=== PATIENT | male | born 1945 | race Caucasian/White ===

== ENCOUNTER 2020-11-12 08:54 | Emergency (ER) | payer MEDICARE, SELFPAY ==
--- NOTE | ~2020-11-12 | XR_ITS ---
EXAMINATION: XR knee LT 3V DATE: 11/12/2020 09:20 INDICATION: Left knee pain post fall TECHNIQUE: Anteroposterior, oblique and crosstable lateral views of the left knee were obtained COMPARISON: None. FINDINGS: Alignment is normal. No fracture. Osteoarthritis without least mild joint space narrowing in the med ial compartment which could be underestimated on nonweightbearing imaging and tiny marginal osteophyt es in the patellofemoral compartment. No knee joint effusion/layering lipohemarthrosis. Mild prepatel lar soft tissue swelling. IMPRESSION: 1. No left knee joint effusion or acute osseous abnormality. Reviewed, dictated and finalized at location A.
--- NOTE | ~2020-11-12 | XR_ITS ---
EXAMINATION: XR forearm RT 2V DATE: 11/12/2020 09:20 INDICATION: Right forearm pain post fall TECHNIQUE: AP an lateral views of the right forearm were obtained. COMPARISON: none FINDINGS: Prominent focal soft tissue swelling at the dorsal aspect of the mid right forearm. Or bone alignment is normal. No fracture. 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 No right elbow joint effusion. IMPRESSION: 1. No acute osseous abnormality. Reviewed, dictated and finalized at location A.
[2020-11-12 09:02] VITALS: BP 136/86; PULSE 65; RESP 18; TEMP 36.9; O2SAT 97
--- NOTE | 2020-11-12 10:37 | ED.FALL ---
HPI - Fall General Chief Complaint: Fall Stated Complaint: fall Time Seen by Provider: 11/12/20 10:07 Source: patient Mode of arrival: ambulatory Limitations: no limitations History of Present Illness HPI Narrative: This is a 75-year-old male that presents to the emergency department after a ground-level fall today. Reports he tripped over his shoelaces and fell forward. He caught himself with his right forearm and also hit his left knee. Reports bruising and pain to these areas. Also reports superficial abrasions. Denies hitting his head, loss of consciousness, decreased range of motion, or numbness. Related Data Home Medications Medication Instructions Recorded Confirmed amlodipine 11/12/20 Allergies Allergy/AdvReac Type Severity Reaction Status Date / Time No Known Allergies Allergy Verified 11/12/20 09:05 Review of Systems Review of Systems: CONSTITUTIONAL: Denies fever SKIN: Reports abrasions MUSCULOSKELETAL: Reports joint pain, and myalgia. NEUROLOGIC: Denies numbness, or weakness. All systems reviewed & are unremarkable except as noted in HPI and below PMFSH Past Medical History Medical History (Updated 11/12/20 @ 10:41 by Jessica Jin PA-C) History of hypertension Social History Social History (Updated 11/12/20 @ 10:39 by Jessica Jin PA-C) Smoking status: Never smoker Exam Narrative: GENERAL: Well-appearing, well-nourished, and in no acute distress. HEAD: Normocephalic, atraumatic. EYES: EOMI. ENT: Nares clear, no rhinorrhea or epistaxis. Mucous membranes moist. Oropharynx without tonsillar hypertrophy exudate or other lesions. Bilateral TMs pearly vann non-bulging NECK: Supple. No adenopathy or masses. No midline cervical spine tenderness CHEST: Clear to auscultation. No respiratory distress. No wheezes rales or rhonchi HEART: Regular rate and rhythm. No murmur heard. Normal peripheral pulses. BACK: No midline thoracic or lumbar spine tenderness EXTREMITIES: Normal range of motion. No obvious deformity. Bruising noted to the mid right forearm. Mild edema about the left knee anteriorly with superficial abrasions in the area. Normal DP and radial pulses. Normal sensation SKIN: Warm, dry, no rash. NEURO: No focal deficits. Alert and oriented x3. PSYCH: Normal mood and affect Course Vital Signs Vital signs: Vital Signs Temperature 98.4 F 11/12/20 09:02 Pulse Rate 65 11/12/20 09:02 Respiratory Rate 18 11/12/20 09:02 Blood Pressure 136/86 11/12/20 09:02 Pulse Oximetry 97 11/12/20 09:02 Temperature 98.4 F 11/12/20 09:02 Pulse Rate 65 11/12/20 09:02 Respiratory Rate 18 11/12/20 09:02 Blood Pressure 136/86 11/12/20 09:02 Pulse Oximetry 97 11/12/20 09:02 MDM - Fall MDM Narrative Medical decision making narrative: Patient presents to the emergency department after a ground-level fall today. Reporting injuries to the left knee and right forearm. Wounds were cleansed and covered with bandages. Patient was updated on tetanus. Left knee x-rays without acute osseous abnormalities. Right forearm x-ray is also without acute osseous abnormalities. Patient given Yomi wrap and instructed to rest, ice and take [id number] pain medication as needed. He is to follow-up with primary care doctor. He was given warnings to return to the ER Imaging Data Radiologist's impression: ITS Impressions Forearm X-Ray 11/12/20 09:24 IMPRESSION: 1. No acute osseous abnormality. Knee X-Ray 11/12/20 09:30 IMPRESSION: 1. No left knee joint effusion or acute osseous abnormality. Critical Care Time Critical Care Time Critical Care Time: No Discharge Plan Discharge Clinical Impression: Contusion of knee, left Qualifiers: Encounter type: initial encounter Qualified Code(s): S80.02XA - Contusion of left knee, initial encounter Abrasion of right forearm Qualifiers: Encounter type: initial encounter Qualified Code(s): S50.81
[2020-11-12] MEDS: TETANUS,DIPHTHERIA,AC PERTUSSIS ADULT (0.5 ML) BOOSTRIX IM (10:45)
[2020-11-12 10:49] VITALS: BP 128/76; PULSE 68; RESP 20; O2SAT 98
== END 2020-11-12 10:51 | disposition home or self-care (01) ==
PROVIDERS: Emergency Provider Emergency Medicine; PCP Internal Medicine
DX: S80.02XA Contusion of left knee, initial encounter (principal); S50.811A Abrasion of right forearm, initial encounter; Z23 Encounter for immunization; W01.0XXA Fall on same level from slipping, tripping and stumbling without subsequent striking against object, initial encounter
CPT/HCPCS: 73090; 73562; 90471; 90715; 99284

== ENCOUNTER 2023-01-21 11:46 | Outpatient (CLI) | payer MEDICARE, SELFPAY ==
--- NOTE | 2023-01-21 12:37 | ECG_ITS ---
Measurements Intervals [place] Rate: 64 P: 75 IN: 180 QRS: -74 QRSD: 98 T: -2 QT: 419 QTc: 432 Interpretive Statements SINUS RHYTHM LEFT ANTERIOR FASCICULAR BLOCK BORDERLINE T WAVE ABNORMALITY- ANTEROLAT/INF LEADS BASELINE WANDER- V6 ABNORMAL ECG NO PREVIOUS ECG AVAILABLE FOR COMPARISON Electronically Signed On 01-21-2023 13:04:05 PACKAGING SALES REPRESENTATIVE by Howard Morrison D.O.
[2023-01-21 13:03] LABS: Basophils Percent Auto 0.5 % (0.2-1.2); Eosinophils Absolute Auto 0.1 K/mm3 (0-0.3); Eosinophils Percent Auto 0.9 % (0-4.4); Hematocrit 42.6 % (42.0-52.0); Hemoglobin 14.9 g/dL (14.0-18.0); Immature Granulocyte Absolute 0.03 K/mm3 (0.00-0.031); Immature Granulocyte Percent A 0.4 % (0-0.5); Lymphocytes Absolute Auto 1.29 K/mm3 (0.9-3.2); Lymphocytes Percent Auto 15.1 % (18.3-44.2); Mean Corpuscular Hemoglobin 30.5 pg (26-34); Mean Corpuscular Volume 87.1 fl (80-100); Monocytes Absolute Auto 0.6 K/mm3 (0.1-0.6); Neutrophils Absolute Auto 6.5 K/mm3 (1.3-6.7); Neutrophils Percent Auto 76.1 % (45.5-73.1); Platelet Count Result 186 k/mm3 (150-375); Red Blood Count 4.89 M/mm3 (4.6-6.20); Red Cell Distribution Width 12.3 % (11.5-14.5); White Blood Count 8.6 K/mm3 (4.5-10.0)
[2023-01-21 13:11] LABS: Urine Cotinine NEGATIVE
[2023-01-21 13:13] LABS: Albumin Level 4.4 g/dL (3.5-5.1); Anion Gap 11 mmol/L (8-16); Blood Urea Nitrogen 17 mg/dL (9-20); Calcium 9.1 mg/dL (8.4-10.2); Carbon Dioxide 26 mmol/L (22-30); Chloride 103 mmol/L (98-107); Estimated Glomerular Filt Rate > 60; Glucose 112 mg/dL (65-110); Potassium 3.5 mmol/L (3.4-5.0); Sodium 140 mmol/L (137-145)
== END 2023-01-21 11:47 | disposition home or self-care (01) ==
LOC: ANHSURGERY 11:50
PROVIDERS: PCP Internal Medicine; Visit Provider Orthopaedic Surgery
DX: Z01.818 Encounter for other preprocedural examination (principal); M17.11 Unilateral primary osteoarthritis, right knee; R94.31 Abnormal electrocardiogram [ECG] [EKG]; R93.1 Abnormal findings on diagnostic imaging of heart and coronary circulation
CPT/HCPCS: 80048; 80307; 82040; 83036; 85025; 87081; 93005

== ENCOUNTER 2023-02-12 02:29 | Day surgery (SDC) | payer MEDICARE, SELFPAY ==
[2023-01-21 11:55] VITALS: BMI 30.8
--- NOTE | 2023-01-21 12:11 | PC.NURSE ---
Report to the Outpatient Waiting Room, entrance under the green pavilion located off [facility], at time _1000 on date __02/12/23 . Planned Procedure Time: __1200 . Time changes happen often and if your time is changed the preop area will call you the afternoon before. - You and your visitor will be asked to self-screen and do not enter if you have any COVID symptoms. - A mask is optional within the hospital at this time. Patients may have clear liquids (water, carbonated beverages, clear teas, apple juice) until 3 hours prior to surgery with a maximum of 20 ounces. - No food from midnight until time of surgery - Infants may have breast milk until 4 hours before surgery, infant formula 6 hours prior to surgery. - Children will be allowed to drink immediately following surgery. If applicable, please bring a bottle or sippy cup to assist with drinking. Juice, water, soda, and popsicles are readily available. For infants on formula, please bring formula the day of surgery. Pacifiers are allowed. Take the following medications with a SIP of water the morning of surgery: ____AMLODIPINE DO NOT STOP ANY OF YOUR OTHER PRESCRIPTION MEDICATIONS PRIOR TO SURGERY ?EXCEPT THE FOLLOWING Medications to discontinue per physician IBUPROFEN 7 DAYS PRE OP PER DR JORGENSEN LAST DOSE 02/04/23 MAY TAKE TYLENOL IF NEEDED FOR PAIN TOTAL JOINT CLASS 01/22/23 AT 10 AM Please no make-up, nail kazakh, hairspray, perfume, deodorant, or body powder the day of surgery. No jewelry (including any body piercings) or valuables the day of surgery, leave them at home. Please take a shower or bath the night before, or the morning of, surgery with an antibacterial soap. Wear comfortable, loose fitting clothing. Children are encouraged to wear pajamas. - Jewelry must be removed prior to entering the operating room. Rings and piercings that are not removed may be cut off. - The hospital will not accept responsibility for valuables. - Please leave all valuables, including medications, at home the day of surgery. If you are going home after surgery, a licensed lyft driver must drive you home. - NO public transportation without another adult if you receive anesthesia. - We recommend that an adult stay with you for 24 hours following discharge. - We also recommend that you do not drive, make important decision, drink alcoholic beverages, or take any drugs that were not prescribed by your health care provider for at least 24 hours after your discharge time. For Pediatric surgeries, we recommend two adults accompany the child home. Follow any additional instructions given to you from your surgeon. If you or anyone in your household have experienced Covid symptoms in the past week, please notify your surgeon or the nurse liaison at the phone number below for possible testing. VERBAL AND WRITTEN instructions given to _PATIENT and asked if any additional questions and then verbalized understanding. Patient advised to call surgeon office or pre surgery nurse liaison [phone] if any additional questions.
[2023-01-21 12:26] VITALS: BP 134/90; PULSE 69; RESP 18; TEMP 36.9; O2SAT 98
--- NOTE | 2023-02-07 08:13 | PM.IMHP ---
H&P: HPI History of Present Illness Date/Time: 02/07/23 08:13 Chief Complaint: Right knee DJD Narrative: 78-year-old male patient of Dr. Wesley presents today for a right total knee arthroplasty. Patient has been having pain in his right knees for years. He has been treating this nonsurgically with occasional ibuprofen. Patient is a very active 78-year-old and is finding it difficult with his daily activities due to the knee pain. He has severe medial compartment osteoarthritis at this point feels he is ready to proceed total knee arthroplasty. Review of Systems Review of Systems: All systems reviewed & are unremarkable except as noted in HPI and below PMFSH Past Medical History Medical History (Updated 02/07/23 @ 08:16 by ALEX Mackenzie) History of hypertension Social History Social History (Updated 11/12/20 @ 10:39 by Jessica Jin PA-C) Smoking status: Never smoker Additional smoking assessment comments: DENIES ANY FORM OF TOBACCO USE Living arrangements: with family Spiritual care concerns: No Meds Home Medications and Allergies Home Medications Medication Instructions Recorded Confirmed Type amlodipine 10 mg tablet 10 mg PO QAM 11/12/20 01/21/23 History ibuprofen 200 mg capsule 200 mg PO Q6H PRN Pain 01/21/23 01/21/23 History Allergies Allergy/AdvReac Type Severity Reaction Status Date / Time No Known Allergies Allergy Verified 01/21/23 11:56 Exam Narrative: 78-year-old male he is 5 ft 7 and 221 lb his BMI is 34.6. His right knee he has a trace effusion, range of motion is from 3-140 degrees. He has minimal medial pseudolaxity. He has a subtle varus alignment. Normal quad strength. Full range of motion of the right hip without discomfort. Negative Stinchfield maneuver. 2+ post tibial artery pulse absent dorsalis pedis pulse. Normal sensation to the right lower extremity without edema. He has a scar that runs parallel to the medial edge of the patella tendon from previous open meniscectomy. Resp: Auscultation: clear to auscultation bilaterally Cardio: Rate: regular rate Rhythm: regular rhythm Assessment and Plan Assessment and plan (1) Right knee DJD: Code(s): M17.11 - Unilateral primary osteoarthritis, right knee Status: Acute Plan 78-year-old male who has severe medial compartment osteoarthritis the right knee with continued symptoms. Again at this point he would like to proceed with total knee arthroplasty. Surgical procedure as well as the risks and complications were discussed in detail and all questions were answered and we will proceed. He will see his primary care doctor for pre-surgical clearance. His nasal swab was negative. Chem panel was all within normal limits, creatinine is 0.90. Hemoglobin 14.9 and platelets were 186.
[2023-02-12] VITALS (12 sets, daily range): BP systolic 106–145; BP diastolic 62–90; PULSE 62–74; RESP 14–20; TEMP 36.4–37.2; O2SAT 89–99
--- NOTE | ~2023-02-12 | XR_ITS ---
EXAMINATION: [id number] DATE: 02/12/2023 16:10 LOOM INSPECTOR INDICATION: Right total knee arthroplasty TECHNIQUE: 2 views right knee FINDINGS: There is a right total knee arthroplasty in expected position. Subcutaneous gas with fluid and air in the joint are consistent with recent surgery. No evidence of periprosthetic fracture. IMPRESSION: 1. Recent right total knee arthroplasty. Reviewed, dictated and finalized at location B. INSPECTOR
[2023-02-12] MEDS: ACETAMINOPHEN 500 MG TABLET 1000 MG PO ×2 (10:27→18:08)
[2023-02-12] MEDS: LACTATED RINGERS 1,000 ML 30 ML IV CONT ×2 (10:35→16:03)
--- NOTE | 2023-02-12 11:52 | WPDHPUPDATE1 ---
History and Physical Update Update Date/Time: 02/12/23 11:52 History and Physical has been reviewed, including an updated exam of the patient. There are NO changes in the patient's condition. Risks, benefits, and alternatives have been discussed and questions answered. Patient agrees to proceed with procedure.
[2023-02-12] MEDS: TRANEXAMIC ACID 1,000MG/ISO100 1,000 MG/100 ML BAG 200 MG IVPB (11:54)
--- NOTE | 2023-02-12 11:59 | WPDANESEPPF ---
Anes - Initial Pre Proc Eval Procedure: Operation Date: 02/12/23 12:00 Proposed Procedures p Right Total Knee Arthroplasty - Tera Kuhn MD Date/Time: 02/12/23 11:59 Surgeon: Tera Kuhn MD Pre Op Diagnosis: oa right knee Patient Data Age: 78 Gender: M Height: 1.78 m Weight: 97.15 kg Last Vital Signs Temp 97.9 F 02/12/23 09:35 Pulse 62 02/12/23 09:35 Resp 20 02/12/23 09:35 BP 145/90 H 02/12/23 09:35 Pulse Ox 99 02/12/23 09:35 O2 Del Method Room Air 02/12/23 09:35 Allergies Allergy/AdvReac Type Severity Reaction Status Date / Time No Known Allergies Allergy Verified 02/12/23 10:25 Home Medications Medication Instructions Recorded Confirmed Type amlodipine 10 mg tablet 10 mg PO QAM 11/12/20 02/12/23 History Laboratory Tests 02/12/23 10:33 Blood Type A Positive Antibody Screen Negative Patient hx anesthesia problems: post op nausea/vomiting Family hx anesthesia problems: none Results Review: All pre-operative results and documents have been reviewed as part of the pre-operative evaluation. [facility] Past Medical History Medical History (Updated 02/07/23 @ 08:16 by ALEX Mackenzie) History of hypertension Social History Social History (Updated 11/12/20 @ 10:39 by Jessica Jin PA-C) Smoking status: Never smoker Additional smoking assessment comments: DENIES ANY FORM OF TOBACCO USE Living arrangements: with family Spiritual care concerns: No Anes - Eval Final PreProcedure Day of Procedure 02/12/23 11:59 Patient weight: obese Heart: regular rate and rhythm Lungs: clear to auscultation Airway: Mallampati scale class II Neurological: alert and oriented Last oral intake: >/= 8 hours ASA classification: III Emergent: no Anesthetic plan: proceed Anesthesia type and monitoring: general ETT and standard monitoring Results Review: All pre-operative results and documents have been reviewed as part of the pre-operative evaluation. Informed Consent: The patient's anesthetic plan and its attendant risks and benefits were discussed with the patient/family/POA. Questions were solicited and answers provided to the satisfaction of the patient/family/POA.
[2023-02-12] MEDS: ceFAZolin 2 GM/D5W 50 ML 2 GM/50 ML BAG IVPB (12:33)
[2023-02-12] MEDS: ceFAZolin SODIUM 1 GM VIAL 3 GM (13:11)
[2023-02-12] MEDS: GENTAMICIN BONE CEMENT REFOBACIN 1 EACH TOPICAL (14:46)
[2023-02-12] MEDS: ceFAZolin SODIUM 1 GM VIAL 2 GM IV PUSH (15:04)
[2023-02-12] MEDS: TRANEXAMIC ACID 1,000 MG/10 ML AMPUL 1000 MG IV PUSH (15:04)
[2023-02-12] MEDS: KETOROLAC 15 MG/ML VIAL (*BKC) IV PUSH (15:04)
--- NOTE | 2023-02-12 15:55 | W.PM.PROC2 ---
Procedure Note - Detailed Date of Procedure 02/12/23 Pre-op Diagnosis oa right knee Post-op Diagnosis Same Procedure Performed Right total knee arthroplasty Surgeon Tera Kuhn MD Dental Intern janet Anesthesia General Description of Procedure Patient was brought to the operating room and general anesthesia was administered. He received 2 g of Ancef weight based vancomycin 1 g of tranexamic acid preoperatively. The right knee was prepped draped usual fashion. Limb was exsanguinated tourniquet elevated to 250 mmHg. A in 8 in longitudinal midline incision was used in the standard parapatellar arthrotomy utilized. We incorporated the vertical incision from decades ago that ran approximately 10 mm medial to the tibial tubercle. Partial infrapatellar fat pad excision performed quadriceps synovectomy carried out. The patella had some chondromalacia medially but good cartilage centrally and in the lateral facet I thought it was most suitable for non resurfacing. Small osteophytes removed and a minimal lateral facetectomy was performed. A guide coleman was inserted down the femoral canal after aspiration of canal contents using the 5 degree valgus cutting bushing 9 mm of bone removed the distal femur. Distal femur was quite sclerotic and eburnated and with aware this removed about 8 mm from the lateral femoral condyle. The ACL was absent as per his history. And next the tibial plateau was cut. We made the cut perpendicular to the axis of the tibia and made a skim cut through the low point of the wear spot in the medial margin of the mid medial tibial plateau. Meniscal remnants were excised the PCL was recessed. He seemed to have full extension preoperatively so we did not perform a posterior capsular release. At 90? of flexion, the flexion gap measured 8 mm medially and 12 mm laterally. The femoral sizing guide was applied to the distal femur set at 3? of external rotation. This matched Whitesides line. The size 70 vanguard cutting block was applied which gave a flush cut with the anterior cortex. Posterior and chamfer cuts were made. His femur was relatively wide deep relative to the anterior-posterior dimension so there was about 2.5 mm of bone distally medial and lateral to the trial. We inserted the 75 10 CR implant 90? of flexion and with a Bolaños elevator we had about a mm and half of medial lateral opening with good balance. Did seem a little bit tight elected to punched with thought this might lose foot subluxation is. The size 7 5 to line anteromedial posterolateral at the proper rotation. The 79 was going to overhang at proper rotation. We punched for a 75 and trialed with 10 insert. This was too tight in flexion with no anterior drawer play the tightness was equal medially and laterally. In extension and lacked a few degrees of extension and again there was no play mediolateral should therefore I elected to remove additional 2 mm of bone from the tibial plateau. Once this was done we again carefully punched keel through the tower to confirm proper registration between the tibial tray and the keel. We also confirmed that the tibial surface was perfectly flat. We then trialed with the 11 and this had the appropriate feel at 90? with a few mm of anterior-posterior drawer and at 140? of flexion no anterior-posterior drawer. The knee came out to full extension with a negative bounce but no play medially and with the arthrotomy closed, there was a very slight bounce indicating incomplete extension to tightness medially. We therefore removed the medial tibial osteophytes conservatively avoiding release the posterior capsule. This was done medially and posteromedially. Little bit of cartilage the proximal posterior femoral condyles was removed and on read trialing the knee came out to full extension 1-2 mm of medial opening in extension to laterally. The arthrotomy towel clip was 1 mm medial opening and still full extension with negative bounce. Mai
--- NOTE | 2023-02-12 16:10 | PM.OP ---
Procedure Note - Brief Procedure Note - Brief Date of procedure: 02/12/23 oa right knee Procedure performed: Right total knee arthroplasty Surgeon: ALEX Mackenzie Findings: 78-year-old male who underwent right total knee arthroplasty on 02/12. I was involved in the procedure including positioning the patient on the OR table and 1st assisting to the time of surgery. Total time spent was 3 hours
[2023-02-12] MEDS: SODIUM CHLORIDE 0.9% IV 1,000 ML 125 ML IV CONT (18:07)
[2023-02-12] MEDS: oxyCODONE HCL (*CRX) 5 MG TAB IR PO ×2 (18:08→20:35)
[2023-02-12] MEDS: SCOPOLAMINE 1.5 MG PATCH TRANSDERM (18:08)
[2023-02-12] MEDS: SENNA/DOCUSATE SODIUM TABLET 2 TAB PO (18:08)
[2023-02-12] MEDS: FAMOTIDINE 20 MG TABLET PO (20:35)
[2023-02-12] MEDS: ceFAZolin 1 GM/NS 50 ML 1 GM/50 ML BAG IVPB (20:36)
[2023-02-12] MEDS: VANCOMYCIN 1,000 MG/NS 250 ML 1,000 MG/250 ML BAG 250 MG IVPB (23:06)
[2023-02-13] MEDS: ACETAMINOPHEN 500 MG TABLET 1000 MG PO ×3 (01:00→12:56)
[2023-02-13] MEDS: oxyCODONE HCL (*CRX) 5 MG TAB IR PO ×4 (01:18→12:56)
[2023-02-13 02:50] VITALS: BP 122/65; PULSE 62; RESP 21; TEMP 36.7; O2SAT 100
[2023-02-13] MEDS: ceFAZolin 1 GM/NS 50 ML 1 GM/50 ML BAG IVPB ×2 (05:00→12:14)
[2023-02-13 05:56] LABS: Basophils Percent Auto 0.1 % (0.2-1.2); Hematocrit 39.4 % (42.0-52.0); Hemoglobin 13.2 g/dL (14.0-18.0); Immature Granulocyte Absolute 0.08 K/mm3 (0.00-0.031); Immature Granulocyte Percent A 0.5 % (0-0.5); Lymphocytes Absolute Auto 0.54 K/mm3 (0.9-3.2); Lymphocytes Percent Auto 3.7 % (18.3-44.2); Mean Corpuscular HGB Conc 33.5 g/dl (32-36); Mean Corpuscular Hemoglobin 29.8 pg (26-34); Mean Corpuscular Volume 88.9 fl (80-100); Mean Platelet Volume 10.1 fl (7.4-10.4); Monocytes Absolute Auto 0.6 K/mm3 (0.1-0.6); Monocytes Percent Auto 4.1 % (2.6-8.5); Neutrophils Absolute Auto 13.5 K/mm3 (1.3-6.7); Neutrophils Percent Auto 91.6 % (45.5-73.1); Platelet Count Result 168 k/mm3 (150-375); Red Blood Count 4.43 M/mm3 (4.6-6.20); Red Cell Distribution Width 12.2 % (11.5-14.5); White Blood Count 14.7 K/mm3 (4.5-10.0)
[2023-02-13 06:06] LABS: Anion Gap 9 mmol/L (8-16); Blood Urea Nitrogen 16 mg/dL (9-20); Calcium 8.3 mg/dL (8.4-10.2); Carbon Dioxide 24 mmol/L (22-30); Chloride 104 mmol/L (98-107); Estimated CRCL calculation 80 ml/min; Estimated Glomerular Filt Rate > 60; Glucose 158 mg/dL (65-110); Potassium 4.2 mmol/L (3.4-5.0); Sodium 137 mmol/L (137-145)
[2023-02-13 06:50] VITALS: BP 129/80; PULSE 57; RESP 20; TEMP 36.1; O2SAT 99
[2023-02-13 08:25] VITALS: O2SAT 99
[2023-02-13] MEDS: amLODIPine BESYLATE 5 MG TABLET 10 MG PO (08:25)
[2023-02-13] MEDS: APIXABAN 2.5 MG TABLET PO (08:25)
[2023-02-13] MEDS: CELECOXIB 200 MG CAPSULE PO (08:25)
[2023-02-13] MEDS: SENNA/DOCUSATE SODIUM TABLET 2 TAB PO (08:26)
[2023-02-13] MEDS: polyethylene glycoL 3350 17 GM POWD.PACK PO (08:26)
[2023-02-13] MEDS: FAMOTIDINE 20 MG TABLET PO (08:26)
--- NOTE | 2023-02-13 08:29 | PM.PNORT ---
Progress Note: A&P Assessment and Plan (1) Status post right knee replacement: Code(s): Z96.651 - Presence of right artificial knee joint Status: Acute Plan the patient is status post right total knee arthroplasty postop day 1 doing well ready for discharge to home. See discharge instructions and orders. This was discussed in detail today with the patient at bedside including making sure he elevates his leg as much as possible above the heart during the day not let his leg hang down. Get up move around every hour with a walker full weight-bearing resume home medications as instructed along with other medications prescribed. He was instructed not to use ice on incision leave the dressing in place he may shower remove that in 1 week changes and follow up with Dr. Brice in 2 weeks for recheck. He is instructed to call the office immediately for any problems difficulties or questions he voiced understanding and agreed with the above plan. Subjective Subjective Date/Time Seen: 02/13/23 08:29 Interval history: Patient is postop day 1 doing well status post total knee arthroplasty. Has no complaints today we discussed postop instructions at bedside he is doing well. He would like to be discharged home later today. Eating and sleeping well ready for therapy. No postop complications or complaints. Review of Systems Review of Systems: Ten point review of systems negative Exam Narrative: on exam the patient is noted be in no acute distress alert oriented x3. Normal mood and affect. Vital signs are stable he is afebrile neurovascularly patient is intact wound clean and dry calves benign tolerating p.o. well. Objective Data Vital Signs Vital Signs: Vital Signs - 24 hr 02/12/23 09:35 02/12/23 16:03 02/12/23 16:30 Temperature 36.6 C 36.5 C Pulse Rate 62 65 65 Respiratory Rate 20 17 18 Blood Pressure 145/90 H 112/68 114/73 Pulse Oximetry 99 95 98 Oxygen Delivery Room Air Simple Face Mask Simple Face Mask Oxygen Flow Rate 6 6 02/12/23 16:45 02/12/23 16:15 02/12/23 16:53 Temperature Pulse Rate 71 66 Respiratory Rate 18 14 Blood Pressure 134/78 114/68 Pulse Oximetry 96 99 89 L Oxygen Delivery Room Air Simple Face Mask Nasal Cannula Oxygen Flow Rate 6 2 02/12/23 17:00 02/12/23 17:35 02/12/23 18:00 Temperature 37.0 C Pulse Rate 72 64 Respiratory Rate 16 18 Blood Pressure 131/74 106/62 Pulse Oximetry 94 94 94 Oxygen Delivery Nasal Cannula Nasal Cannula Oxygen Flow Rate 2 2 02/12/23 18:45 02/12/23 18:15 02/12/23 22:02 Temperature 37.2 C 36.8 C 36.4 C Pulse Rate 66 69 74 Respiratory Rate 18 16 20 Blood Pressure 110/78 110/72 127/65 Pulse Oximetry 98 94 99 Oxygen Delivery Oxygen Flow Rate 02/13/23 02:50 02/13/23 06:50 Temperature 36.7 C 36.1 C L Pulse Rate 62 57 L Respiratory Rate 21 H 20 Blood Pressure 122/65 129/80 Pulse Oximetry 100 99 Oxygen Delivery Oxygen Flow Rate Intake/Output Intake/Output: Intake & Output 02/10/23 02/11/23 02/12/23 02/13/23 23:59 23:59 23:59 23:59 Intake Total 700 500 Output Total 600 Balance 700 -100 Meds/Results Medications: Active Medications Generic Name Dose Route Start Last Admin Trade Name Delilah PRN Reason Stop Dose Admin Acetaminophen 1,000 mg 02/12/23 18:00 02/13/23 05:27 Acetaminophen 500 Mg Tablet PO 1,000 mg Q6H SHARAD Administration Amlodipine Besylate 10 mg 02/13/23 09:00 02/13/23 08:25 Amlodipine Besylate 5 Mg Tablet PO 10 mg QAM SHARAD Administration Apixaban 2.5 mg 02/13/23 09:00 02/13/23 08:25 Apixaban 2.5 Mg Tablet PO 02/24/23 21:01 2.5 mg Q12HR SHARAD Administration Cefdinir 300 mg 02/13/23 21:00 Cefdinir 300 Mg Capsule PO Q12HR SHARAD Celecoxib 200 mg 02/13/23 08:00 02/13/23 08:25 Celecoxib 200 Mg Capsule PO 200 mg DAILY@0800 SHARAD Administration Diphenhydramine HCl 25 mg 02/12/23 17:05 Diphenhydramine Hcl Inj 50 Mg
--- NOTE | 2023-02-13 08:42 | PM.DS ---
DS: Admitting Diagnosis Discharge Date February 13, 2023 Admitting Diagnosis admitting diagnosis advanced primary osteoarthritis right knee joint. Discharge diagnosis same status post right total knee arthroplasty. DS: Summary Hospital Course Hospital Course: The patient was admitted overnight status post right total knee arthroplasty postop day 1 he was doing well pain was well controlled vital signs are stable he is afebrile neurovascular is intact wound was clean and dry calves are benign he was up ambulating independently with a walker in therapy doing well. Had no postop complaints or issues. Patient was alert oriented x3. Normal mood and affect. . The patient was ready for discharge to home. At bedside we discussed details of the discharge instructions these included when resting life flat on the back have the leg elevated above the heart do not apply ice to the knee or incision. The patient was instructed to pump his ankles frequently go through his range of motion exercises at least 5 times a day get up and move around about every hour for prevention of DVT as well. Patient was instructed to not let his leg hang while sitting in a chair other than to get up to eat or use the restroom. The patient was instructed that he may shower leaving the dressing in place remove the dressing in 1 week replace it watch for evidence of infection or drainage call the office immediately for any problems difficulties or questions. Follow-up with Dr. ann in 2 weeks for wound recheck. The patient was to be full weight-bearing with a walker have outpatient physical therapy as instructed and pre scheduled by our office. If significant swelling or pain occurs in the lower extremity the patient was instructed to call the office and go to the hospital for a venous duplex scan the patient voiced understanding and agreed with the above plan. The patient was to be discharged to home in stable condition. Time Spent with Patient Time attestation: Total time spent providing and/or coordinating discharge services: Exam Narrative: Vital signs stable afebrile neurovascular intact wound clean and dry calves benign alert oriented x3. Normal mood and affect. Pain well controlled ambulating with a walker no other complaints. DS: Data Data Completed and Pending Labs on day of discharge: Labs from last 24 hours 02/13/23 02/12/23 05:14 10:33 WBC 14.7 H RBC 4.43 L Hgb 13.2 L Hct 39.4 L MCV 88.9 MCH 29.8 MCHC 33.5 RDW 12.2 Plt Count 168 MPV 10.1 Immature Gran % (Auto) 0.5 Neut % (Auto) 91.6 H Lymph % (Auto) 3.7 L [place] % (Auto) 4.1 Eos % (Auto) 0.0 Baso % (Auto) 0.1 L Lymph # (Auto) 0.54 L [place] # (Auto) 0.6 Eos # (Auto) 0.0 Baso # (Auto) 0.0 Abs Immat Gran (auto) 0.08 H Absolute Neuts (auto) 13.5 H Absolute Nucleated RBC 0.0 Nucleated RBC % 0.0 Sodium 137 Potassium 4.2 Chloride 104 Carbon Dioxide 24 Anion Gap 9 BUN 16 Creatinine 0.80 Estim Creat Clear Calc 80 Estimated GFR > 60 Glucose 158 H Calcium 8.3 L Blood Type A Positive Antibody Screen Negative Procedures/Treatments: Right total knee arthroplasty Discharge Plan Discharge Patient Disposition: Home, Self-Care Discharge Instructions: [facility], [address] [address] POST-OPERATIVE DISCHARGE INSTRUCTIONS TOTAL KNEE ARTHROPLASTY 1. When resting, do not rest in the chair.When resting, lie on your back, with back flat on the couch or bed, with leg elevated above heart to minimize swelling. You may put a pillow under your head. . Significant swelling could indicate a blood clot and if this occurs call the office (or go to the ER) to have a venous ultrasound. Therefore, do not rest in a chair. 2. At least five times a day spend several minutes stretching your knee into flexion while sitting in the chair a
[2023-02-13] MEDS: VANCOMYCIN 1,000 MG/NS 250 ML 1,000 MG/250 ML BAG 250 MG IVPB (10:41)
[2023-02-13 10:50] VITALS: BP 120/78; PULSE 60; RESP 18; TEMP 36.6; O2SAT 93
--- NOTE | 2023-02-13 13:53 | P.PNAN_ITS ---
Anes - Prog Note Post-Op Date/Time: 02/13/23 13:53 Vital Signs: Last Vital Signs Temp 36.6 C 02/13/23 10:50 Pulse 60 02/13/23 10:50 Resp 18 02/13/23 10:50 BP 120/78 02/13/23 10:50 Pulse Ox 93 02/13/23 10:50 O2 Del Method Room Air 02/13/23 09:17 O2 Flow Rate 2 02/12/23 17:35 Pain Score (VAS): 0 I/O: Intake & Output 02/12/23 02/13/23 02/13/23 23:59 07:59 15:59 Intake Total 150 800 480 Output Total 600 225 Balance 150 200 255 Laboratory Tests 02/13/23 05:14 02/13/23 05:14 02/13/23 05:14 WBC 14.7 H RBC 4.43 L Hgb 13.2 L Hct 39.4 L MCV 88.9 MCH 29.8 MCHC 33.5 RDW 12.2 Plt Count 168 MPV 10.1 Immature Gran % (Auto) 0.5 Neut % (Auto) 91.6 H Lymph % (Auto) 3.7 L [place] % (Auto) 4.1 Eos % (Auto) 0.0 Baso % (Auto) 0.1 L Lymph # (Auto) 0.54 L [place] # (Auto) 0.6 Eos # (Auto) 0.0 Baso # (Auto) 0.0 Abs Immat Gran (auto) 0.08 H Absolute Neuts (auto) 13.5 H Absolute Nucleated RBC 0.0 Nucleated RBC % 0.0 Sodium 137 Potassium 4.2 Chloride 104 Carbon Dioxide 24 Anion Gap 9 BUN 16 Creatinine 0.80 Estim Creat Clear Calc 80 Estimated GFR > 60 Glucose 158 H Calcium 8.3 L Patient Feedback: Patient satisfied with anesthetic care.
== END 2023-02-13 14:00 | disposition home or self-care (01) ==
LOC: ANHSURGERY 09:39 → ANH3MED 17:14
PROVIDERS: Physician Assistant Surgical; PCP Internal Medicine; Visit Provider Orthopaedic Surgery
PROC: (CPT 27447; principal; 2023-02-12 12:00)
DX: M17.11 Unilateral primary osteoarthritis, right knee (principal); I10 Essential (primary) hypertension; E66.9 Obesity, unspecified; Z68.30 Body mass index [BMI] 30.0-30.9, adult
CPT/HCPCS: 27447; 36415; 73560; 80048; 80307; 82040; 83036; 85025; 86850; 86900; 86901; 87081; 93005; 97110; 97161; 97165; 97530; A9270; C1713; C1776; J0171; J0330; J0690; J1100; J1170; J1885; J2270; J2405; J2704; J2795; J3010; J3370; J7030; J7120

== ENCOUNTER 2024-01-20 08:49 | Outpatient (CLI) | payer MEDICARE, SELFPAY ==
--- NOTE | ~2024-01-20 | XR_ITS ---
XR shoulder LT min 2V Ordering provider: Tera Kuhn MD History: . R52 - Pain, unspecified . Comparison: None. FINDINGS: BONES: No acute fracture or dislocation. JOINT SPACES: The acromioclavicular joint is normal. The glenohumeral joint is normal. SOFT TISSUES: Normal. IMPRESSION: No acute osseous abnormality left shoulder. Reviewed, dictated and finalized at location A. ECT LEAD
== END 2024-01-20 08:50 | disposition home or self-care (01) ==
PROVIDERS: PCP Orthopaedic Surgery; Visit Provider Orthopaedic Surgery
DX: M25.512 Pain in left shoulder (principal)
CPT/HCPCS: 73030

== ENCOUNTER 2024-03-08 08:56 | Outpatient (CLI) | payer MEDICARE, SELFPAY ==
--- NOTE | ~2024-03-08 | XR_ITS ---
EXAMINATION: XR knee RT 3V DATE: 03/08/2024 09:20 INDICATION: Right knee arthroplasty TECHNIQUE: Standing AP, lateral and sunrise views of the left knee were obtained COMPARISON: None. FINDINGS: Right total knee arthroplasty without patellar resurfacing which appears well seated in near-anatomic alignment. No periprosthetic lucency to suggest loosening or infection. No acute osseous abnormality . There is narrowing of the space between the patellar apical ridge and the femoral component of the arthroplasty on the sunrise image with subarticular lucency at the apical ridge suggesting overlying high-grade chondromalacia. No definitive knee joint effusion. There are couple tiny metallic foreign bodies in the subcutaneous tissues anterior to the patella and at the anterolateral aspect of the pro ximal calf. IMPRESSION: 1. Right total knee arthroplasty without patellar resurfacing with no acute osseous abnormality or de finitive knee joint effusion. 2. 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 Reviewed, dictated and finalized at location B. ER NICKEL IMPRESSION: 1. Right total knee arthroplasty without patellar resurfacing with no acute oss eous abnormality or definitive knee joint effusion. 2. 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
== END 2024-03-08 08:57 | disposition home or self-care (01) ==
PROVIDERS: PCP Internal Medicine; Visit Provider Orthopaedic Surgery
DX: Z96.651 Presence of right artificial knee joint (principal)
CPT/HCPCS: 73562